=== PATIENT | male | born 1980 | race Caucasian/White ===

== ENCOUNTER 2021-05-07 16:34 | Inpatient (IN) ==
[2021-05-07 20:24] LABS: ABS Lymphocytes 1.3 10^3/ul (1.0-4.8); ABS Monocytes 0.8 10^3/ul (0-0.8); ABS Neutrophils 8.7 10^3/ul (1.5-7.7); Eosinophil % 0.3 %; Hematocrit 44 % (42-52); Hemoglobin 14.5 g/dL (14.0-18.0); Lymphocyte % 11.8 %; Mean Corpuscular HGB Conc 33 g/dL (31-36); Mean Corpuscular Hemoglobin 30 pg (27-31); Mean Corpuscular Volume 90 fL (80-94); Mean Platelet Volume 8.5 fL (7.4-10.4); Platelet Count 375 10^3/uL (150-450); Red Blood Count 4.85 10^6 /uL (4.18-5.48); Red Cell Distribution Width 14 % (10-15); White Blood Count 10.9 10^3/uL (3.5-10.8)
[2021-05-07 20:40] LABS: ALT 15 U/L (7-52); AST 41 U/L (13-39); Albumin 4.8 g/dL (3.2-5.2); Albumin/Globulin Ratio 1.5 (1-3); Alkaline Phosphatase 175 U/L (35-149); Anion Gap 9 mmol/L (2-11); Blood Urea Nitrogen 12 mg/dL (6-24); CO2 Carbon Dioxide 28 mmol/L (22-32); Calcium 10.4 mg/dL (8.6-10.3); Chloride 97 mmol/L (101-111); EGFR African American 115.9 (>60); EGFR Non-African American 95.8 (>60); Globulin 3.2 g/dL (2-4); Glucose 101 mg/dL (70-100); Potassium 4.3 mmol/L (3.5-5.0); Sodium 134 mmol/L (135-145)
[2021-05-07 20:56] LABS: Acetaminophen < 15 mcg/mL; Alcohol, S < 10 mg/dL (<10); Salicylate < 2.50 mg/dL (<30)
[2021-05-07 21:11] LABS: TSH Ultra Thyroid Stim Horm 1.95 mcIU/mL (0.34-5.60)
[2021-05-07] MEDS ORDERED: Al Hydrox/Mg Hydrox/Simet LIQ 30 ML UDC PO PRN (22:29)
[2021-05-07] MEDS ORDERED: Nicotine GUM 2MG FRUIT FLAVOR PO PRN (23:00)
[2021-05-08] MEDS: Vitamin THERAPEUTIC TAB PO SCH (08:37)
[2021-05-08] MEDS: Nicotine PATCH 21 MG/24 HR PATCH TRANSDERM SCH (09:44)
[2021-05-08 13:32] LABS: Urine Appearance Cloudy; Urine Bilirubin Negative (Negative); Urine Blood Negative (Negative); Urine Color Amber; Urine Glucose Negative (Negative); Urine Ketones Negative (Negative); Urine Nitrite Negative (Negative); Urine Protein Negative (Negative); Urine Specific Gravity 1.024 (1.002-1.030); Urine Urobilinogen Negative (Negative)
[2021-05-08 13:43] LABS: Urine Bacteria Absent (Absent); Urine Benzodiazepine Screen None Detected (None Detect); Urine Cannabinoids Screen None Detected (None Detect); Urine Opiates Screen None Detected (None Detect); Urine Red Blood Cell Absent (Absent); Urine White Blood Cell 2+(11-20/hpf) (Absent)
[2021-05-08] MEDS ORDERED: Lorazepam PYXIS KEY PRN (15:25)
[2021-05-08] MEDS ORDERED: LORazepam 2 mg VIAL 1 ml IM SCH (16:00)
[2021-05-09 08:27] LABS: HDL Cholesterol 45.7 mg/dL
[2021-05-09] MEDS: Nicotine PATCH 21 MG/24 HR PATCH TRANSDERM SCH (10:37)
[2021-05-09] MEDS: Vitamin THERAPEUTIC TAB PO SCH (12:20)
[2021-05-10] MEDS: Nicotine PATCH 21 MG/24 HR PATCH TRANSDERM SCH (08:48)
[2021-05-10] MEDS: Vitamin THERAPEUTIC TAB PO SCH (08:48)
[2021-05-11] MEDS: Vitamin THERAPEUTIC TAB PO SCH (09:47)
[2021-05-11] MEDS: Nicotine PATCH 21 MG/24 HR PATCH TRANSDERM SCH (09:47)
[2021-05-12] MEDS: Vitamin THERAPEUTIC TAB PO SCH (09:03)
[2021-05-12] MEDS: Nicotine PATCH 21 MG/24 HR PATCH TRANSDERM SCH (09:03)
[2021-05-12] MEDS: Pentoxifylline CR 400 mg TAB 400 MG PO SCH (12:44)
[2021-05-13] MEDS: Nicotine PATCH 21 MG/24 HR PATCH TRANSDERM SCH (08:59)
[2021-05-13] MEDS: Vitamin THERAPEUTIC TAB PO SCH (09:00)
[2021-05-13] MEDS: Pentoxifylline CR 400 mg TAB 400 MG PO SCH (12:36)
[2021-05-14 08:34] VITALS: BP 125/83
[2021-05-14] MEDS: Vitamin THERAPEUTIC TAB PO SCH (09:15)
[2021-05-14] MEDS: Nicotine PATCH 21 MG/24 HR PATCH TRANSDERM SCH (09:18)
[2021-05-14] MEDS: Pentoxifylline CR 400 mg TAB 400 MG PO SCH (13:02)
== END 2021-05-14 17:00 | disposition home or self-care (01) | DRG 751 ==
LOC: ED 16:34 → BSU 22:30
PROVIDERS: ADMIT Psychiatry & Neurology Psychiatry; ATTEND Psychiatry & Neurology Psychiatry

== ENCOUNTER 2021-07-01 18:29 | Inpatient (IN) ==
[2021-07-01 19:19] LABS: ABS Eosinophils 0.1 10^3/ul (0-0.6); ABS Lymphocytes 2.1 10^3/ul (1.0-4.8); ABS Monocytes 0.6 10^3/ul (0-0.8); Eosinophil % 0.9 %; Hematocrit 39 % (42-52); Hemoglobin 13.8 g/dL (14.0-18.0); Lymphocyte % 23.4 %; Mean Corpuscular HGB Conc 35 g/dL (31-36); Mean Corpuscular Hemoglobin 30 pg (27-31); Mean Corpuscular Volume 85 fL (80-94); Mean Platelet Volume 8.2 fL (7.4-10.4); Nucleated Red Blood Cells % 0.1; Platelet Count 312 10^3/uL (150-450); Red Blood Count 4.62 10^6 /uL (4.18-5.48); Red Cell Distribution Width 13 % (10-15); White Blood Count 8.9 10^3/uL (3.5-10.8)
[2021-07-01 19:36] LABS: ALT 12 U/L (7-52); AST 20 U/L (13-39); Albumin 4.4 g/dL (3.2-5.2); Albumin/Globulin Ratio 1.8 (1-3); Alkaline Phosphatase 115 U/L (35-149); Blood Urea Nitrogen 6 mg/dL (6-24); CO2 Carbon Dioxide 22 mmol/L (22-32); Calcium 8.7 mg/dL (8.6-10.3); Chloride 86 mmol/L (101-111); EGFR African American 168.2 (>60); Globulin 2.4 g/dL (2-4); Glucose 104 mg/dL (70-100); Potassium 3.4 mmol/L (3.5-5.0); Total Protein 6.8 g/dL (6.4-8.9)
[2021-07-01 19:55] LABS: Anion Gap 10 mmol/L (2-11); Sodium 118 mmol/L (135-145)
[2021-07-01 20:09] LABS: Acetaminophen < 15 mcg/mL; Alcohol, S < 13 mg/dL (<13); Salicylate < 2.50 mg/dL (<30)
[2021-07-01 20:22] LABS: TSH Ultra Thyroid Stim Horm 1.57 mcIU/mL (0.34-5.60)
[2021-07-01] MEDS ORDERED: NS 0.9% 1000 ml BAG 1,000 ML IV ONE (20:32)
[2021-07-01 21:54] LABS: Urine Appearance Clear; Urine Bilirubin Negative (Negative); Urine Blood Negative (Negative); Urine Color Colorless; Urine Glucose Negative (Negative); Urine Ketones Negative (Negative); Urine Nitrite Negative (Negative); Urine Protein Negative (Negative); Urine Urobilinogen Negative (Negative)
[2021-07-01 22:24] LABS: Urine Benzodiazepine Screen None Detected (None Detect); Urine Cannabinoids Screen None Detected (None Detect); Urine Opiates Screen None Detected (None Detect)
[2021-07-02 04:15] LABS: HDL Cholesterol 45.6 mg/dL
[2021-07-02 04:23] LABS: Renal Sodium Excretion 1.44 %; Urine Creatinine Concentration 7.29 mg/dL
[2021-07-02 04:58] LABS: Creatinine, Serum 0.63 mg/dL (0.51-0.95)
[2021-07-02 06:15] LABS: Hematocrit 43 % (42-52); Hemoglobin 14.7 g/dL (14.0-18.0); Mean Corpuscular HGB Conc 34 g/dL (31-36); Mean Corpuscular Hemoglobin 29 pg (27-31); Mean Corpuscular Volume 85 fL (80-94); Mean Platelet Volume 8.3 fL (7.4-10.4); Platelet Count 339 10^3/uL (150-450); Red Blood Count 5.03 10^6 /uL (4.18-5.48); Red Cell Distribution Width 13 % (10-15); White Blood Count 6.2 10^3/uL (3.5-10.8)
[2021-07-02 06:31] LABS: Calcium 8.9 mg/dL (8.6-10.3); EGFR African American 151.4 (>60); EGFR Non-African American 125.1 (>60); Potassium 4.1 mmol/L (3.5-5.0)
[2021-07-02] MEDS ORDERED: Al Hydrox/Mg Hydrox/Simet LIQ 30 ML UDC PO PRN (16:21)
[2021-07-03 08:25] LABS: Albumin 4.2 g/dL (3.2-5.2); Albumin/Globulin Ratio 1.7 (1-3); EGFR African American 135.4 (>60); EGFR Non-African American 111.9 (>60); Globulin 2.5 g/dL (2-4); HDL Cholesterol 49.5 mg/dL; Potassium 3.9 mmol/L (3.5-5.0); Total Bilirubin 0.3 mg/dL (0.2-1.0); Total Protein 6.7 g/dL (6.4-8.9)
[2021-07-03] MEDS: Vitamin THERAPEUTIC TAB PO SCH (09:35)
[2021-07-03] MEDS ORDERED: OLANzapine 5 mg TAB*ODT PO PRN (11:52)
[2021-07-04] MEDS: Vitamin THERAPEUTIC TAB PO SCH (09:42)
[2021-07-05] MEDS: Vitamin THERAPEUTIC TAB PO SCH (09:13)
[2021-07-06] MEDS: Vitamin THERAPEUTIC TAB PO SCH (13:41)
[2021-07-07] MEDS: Vitamin THERAPEUTIC TAB PO SCH (08:46)
[2021-07-08] MEDS: Vitamin THERAPEUTIC TAB PO SCH (09:36)
[2021-07-08 13:15] LABS: Lithium 0.37 mmol/L (0.6-1.2)
[2021-07-08 13:25] LABS: Testosterone 424.02 ng/dL (240-950)
[2021-07-08 16:07] LABS: Hepatitis B Surface Antigen Nonreactive (Nonreactive)
[2021-07-08 16:10] LABS: HIV 4th Generation Nonreactive (Nonreactive)
[2021-07-08 16:17] LABS: Hepatitis A Ab IgM Negative (Negative)
[2021-07-08 16:19] LABS: Hepatitis B Core IgM Nonreactive (Nonreactive)
[2021-07-08 16:25] LABS: Hepatitis C Antibody Negative (Negative)
[2021-07-08] MEDS ORDERED: Hemorrhoidal OINT 1 TUBE PR PRN (19:18)
[2021-07-09] MEDS: Vitamin THERAPEUTIC TAB PO SCH (09:51)
[2021-07-09 14:04] LABS: Chlamydia trachomatis NAA Negative (Negative); Neisseria gonorrhoeae (GC) NAA Negative (Negative)
[2021-07-10] MEDS: Vitamin THERAPEUTIC TAB PO SCH (08:36)
[2021-07-11] MEDS: Vitamin THERAPEUTIC TAB PO SCH (10:00)
[2021-07-12] MEDS: Vitamin THERAPEUTIC TAB PO SCH (10:06)
[2021-07-13] MEDS: Vitamin THERAPEUTIC TAB PO SCH (08:33)
[2021-07-14] MEDS: Vitamin THERAPEUTIC TAB PO SCH (08:43)
[2021-07-15] MEDS: Vitamin THERAPEUTIC TAB PO SCH (08:40)
[2021-07-16] MEDS: Vitamin THERAPEUTIC TAB PO SCH (08:35)
[2021-07-16 09:45] VITALS: BP 111/93
== END 2021-07-16 11:30 | disposition home or self-care (01) | DRG 753 ==
LOC: ED 18:29 → BSU 07-02 18:30
PROVIDERS: ADMIT Psychiatry & Neurology Psychiatry; ATTEND Psychiatry & Neurology Psychiatry